=== PATIENT | male | born 1945 | race Caucasian/White ===

== ENCOUNTER 2017-11-21 11:41 | Outpatient (RCR) | payer MEDICARE, OTHER | END 2018-02-19 | disposition home or self-care (01) | LOC: CARDREHAB | DX: Z48.812 Encounter for surgical aftercare following surgery on the circulatory system (principal); Z95.2 Presence of prosthetic heart valve ==

== ENCOUNTER → 2017-11-26 | Outpatient (CLI) | payer MEDICARE, OTHER ==
[2017-11-26 11:27] LABS: PROTHROMBIN TIME 23.8 SECONDS (9.0-12.0)
== END ==
LOC: LAB 10:51
PROVIDERS: Family Medicine
DX: Z79.01 Long term (current) use of anticoagulants (principal)

== ENCOUNTER → 2017-12-10 | Outpatient (CLI) | payer MEDICARE, OTHER ==
[2017-12-10 11:31] LABS: PROTHROMBIN TIME 14.3 SECONDS (9.0-12.0)
== END ==
LOC: LAB 11:05
PROVIDERS: Family Medicine
DX: Z79.01 Long term (current) use of anticoagulants (principal)

== ENCOUNTER → 2017-12-17 | Outpatient (CLI) | payer MEDICARE, OTHER ==
[2017-12-17 11:44] LABS: PROTHROMBIN TIME 14.8 SECONDS (9.0-12.0)
== END ==
LOC: LAB 11:06
PROVIDERS: Family Medicine
DX: Z79.01 Long term (current) use of anticoagulants (principal)

== ENCOUNTER → 2017-12-24 | Outpatient (CLI) | payer MEDICARE, OTHER ==
[2017-12-24 11:31] LABS: PROTHROMBIN TIME 20.8 SECONDS (9.0-12.0)
== END ==
LOC: LAB 11:01
PROVIDERS: Family Medicine
DX: Z79.01 Long term (current) use of anticoagulants (principal)